=== PATIENT | male | born 1955 | race Caucasian/White ===

== ENCOUNTER 2024-01-24 18:42 | Emergency (ER) | payer OTHER, SELFPAY ==
--- NOTE | 2024-01-24 18:55 | XRR_ITS ---
PROCEDURE INFORMATION: Exam: XR Left Ankle Exam date and time: 01/24/2024 6:59 PM Age: 68 years old Clinical indication: Injury or trauma; Other: Laceration to lt ankle; Left; Foreign body involvement not specified TECHNIQUE: Imaging protocol: Radiologic exam of the left ankle. Views: 3 or more views. COMPARISON: No relevant prior studies available. FINDINGS: Bones/joints: Ankle mortise is intact without evidence of acute fracture or subluxation. Achilles enthesophyte. If there is concern for Achilles tendon pathology, follow-up outpatient MRI may be helpful. 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 Soft tissues: Deep laceration of the volar aspect of the distal left lower extremity. XR/XR ankle LT min 3V* [id number] IMPRESSION: 1. Laceration without evidence of acute fracture or subluxation.
[2024-01-24 18:56] VITALS: BP 171/89; PULSE 66; RESP 16; TEMP 36.7; O2SAT 100
--- NOTE | 2024-01-24 18:56 | W.ED.WOUNDLC ---
HPI - Wound/Laceration General: Chief Complaint: Wound/Laceration Stated Complaint: Left leg Gash Time Seen by Provider: 01/24/24 18:51 Source: patient Mode of arrival: ambulatory Limitations: no limitations History of Present Illness: 68-year-old male states that he was chopping wood with a hatchet and has bounced off the wood and hit him in the left lower leg he does have a laceration to left lower leg he has pain at the site he rates a 3 out of 10 he denies any difficulty walking his last tetanus was 4 months ago Associated symptoms: Denies chills, fever(s), nausea or vomiting Review of Systems Const: Denies: fever(s), chills, body aches or change in appetite ENMT: Denies: throat pain or dental pain Card: Denies: chest pain Resp: Denies: dyspnea GI: Denies: abdominal pain, nausea, vomiting or diarrhea Musc: Reports: extremity pain; Denies: neck pain or back pain Skin/Breast: Denies: rash Neuro: Denies: headache(s) Physical Exam Const: COMMON NORMALS: no acute distress, patient oriented x3 and healthy appearing HENMT: COMMON NORMALS: normocephalic and atraumatic HEAD & SCALP: normocephalic and atraumatic Neck/C-Spine: COMMON NORMALS: full ROM and supple Chest: COMMONS NORMALS: normal inspection of the chest Resp: COMMON NORMALS: normal respiratory effort Cardio: COMMON NORMALS: regular rate RATE: regular rate Extremity: COMMON NORMALS: full ROM NARRATIVE EXTREMITY EXAM: Worsening or laceration to left lower anterior leg no tendon involvement bleeding controlled Neuro: COMMON NORMALS: patient oriented x3, moves all extremities and no focal motor deficits Psych: COMMON NORMALS: mental status grossly normal, Normal thought process present and cooperative THOUGHT PROCESS: Normal thought process present Skin: COMMON NORMALS: no rashes or lesions noted and no wounds GENERAL SKIN EXAM: no rashes or lesions noted Procedures Laceration Laceration 1: Site: lower extremity Side (If applicable): left Size (cm): 4 Description: linear Depth: simple, single layer Local Anesthetic: lidocaine 1% Amount of anesthesia used (mL): 14 Pre-repair: wound explored, irrigated extensively and deep structures intact Skin layer closed with: nylon Size (cm): 4-0 Number of sutures: 5 Technique: simple, interrupted Course Vital Signs: Vital signs: Vital Signs Temperature 98.0 F 01/24/24 18:56 Pulse Rate 66 01/24/24 18:56 Respiratory Rate 16 01/24/24 18:56 Blood Pressure 171/89 01/24/24 18:56 Pulse Oximetry 100 01/24/24 18:56 MDM - Wound/Laceration Medical Decision Making Patient presents here with a laceration to left lower leg did repair the laceration he is to have sutures removed in 14 days he has no bony injuries Medical Records I reviewed the patient's medical records. XR interpretation done by ED provider, pending radiology final review ED provider radiology interpretation(s): X-ray left leg no acute abnormality Discharge Plan Discharge Patient Disposition: Home Clinical Impression: Laceration Condition: Stable Discharge Orders: Discharge ED (Routine); Ordered 01/24/24 Ordered By: Wiley Kennedy Discharge Diet: Advance as tolerated Discharge Activity: Resume usual activity Patient Instructions: Care For Your Stitches (ED), Laceration (ED) Activity Restrictions/Additional Instructions: suture removal in 14 days Coding Level of Care Code ED [employer] Specialist for Milly Villaseñor
[2024-01-24 20:01] VITALS: BP 134/82; PULSE 88; O2SAT 99
== END 2024-01-24 20:04 | disposition home or self-care (01) ==
PROVIDERS: Emergency Provider Emergency Medicine
DX: S81.812A Laceration without foreign body, left lower leg, initial encounter (principal); W27.0XXA Contact with workbench tool, initial encounter
CPT/HCPCS: 12002; 73610; 99283